=== PATIENT | male | born 1995 | race Caucasian/White ===

== ENCOUNTER 2017-09-24 12:31 | Emergency (ER) | payer OTHER ==
[2017-09-24] MEDS: KETOROLAC 60 MG INJ IM (13:29)
== END 2017-09-24 16:00 | disposition home or self-care (01) ==
LOC: FTE 12:31
DX: M54.5 Low back pain (principal)
CPT/HCPCS: 72100; 96372; 99284-25

== ENCOUNTER 2019-01-02 08:50 | Emergency (ER) | payer OTHER | END 2019-01-02 09:48 | disposition home or self-care (01) | LOC: FTE 08:50 | DX: H60.92 Unspecified otitis externa, left ear (principal) | CPT/HCPCS: 99283 ==